=== PATIENT | female | born 1950 | race Caucasian/White ===

== ENCOUNTER 2017-04-09 12:38 | Emergency (ER) | payer MEDICARE ==
--- NOTE | ~2017-04-09 | CR72 ---
[facility] A Service of [facility] RADIOLOGY TEXT RESULTS PATIENT: WES [place] LOCATION: [facility] : 54 UNIT #: [id number] AGE: [address]: Reece Jones MD SEX: F ORDER DR: [id number] [facility] [address] [place], [place] [address] [id number] MR#: [id number] Acc #: [id number] NAME: WES [place] : 1950 SEX: F STUDY DATE/TIME: 04/09/2017 13:23 UNIT: [facility] ROOM: STUDY DESCRIPTION: CR Chest Single View Portable Attending Physician: Reece Jones M.D. Ordering Physician: Ed Kenton Carmona M.D. Primary Care Physician: Jordan King M.D. MEDICAL IMAGING REPORT This report is preliminary unless electronic signature is present EXAM Portable chest INDICATIONS Shortness of air and chest pain for 1 day. COMPARISON 08/28/16 FINDINGS A portable view of the chest is obtained. The heart size and vascularity are normal. The lungs are clear, except for linear atelectasis in the left lower lobe and right lower lobe. The bones are normal. IMPRESSION Minimal linear subsegmental atelectasis in each lower lobe, otherwise normal. Dictated by... Freeman Coker M.D. THIS IS AN ELECTRONICALLY VERIFIED REPORT Freeman Coker M.D. at 04/10/2017 7:27 AM ALMA DELIA/declan TD: 04/09/2017 22:22 JOB #: [id number] MEDICAL IMAGING REPORT Page 1 of 1 COPY
--- NOTE | ~2017-04-09 | EKG ---
PATIENT: WES [place] UNIT #: [id number] Ventricular Rate: 63 BPM Atrial Rate: 63 BPM P-R Interval: 138 ms QRS Duration: 90 ms Q-T Interval: 424 ms QTC Calculation(Bezet): 433 ms P Tatum: 3 degrees Calculated R Tatum: 18 degrees Calculated T Tatum: 25 degrees Diagnosis Line: Normal sinus rhythm Diagnosis Line: Normal ECG Diagnosis Line: When compared with ECG of 28-AUG-2016 18:10, Diagnosis Line: No significant change was found Diagnosis Line: Confirmed by PAIGE FRANCO MD ([id number]) on Diagnosis Line: 04/09/2017 10:20:07 PM INTERPRETING MD: CHELE
[~2017-04-09 12:38] MED LIST: ADVAIR 100-501 EAC1 IH; ALBUTEROL17 GM INH; ASPIRIN; ATARAX; AZITHROMYCIN250 MG PO; BACTRIM DS TABL1 TA1 PO; BACTRIM DS TABL1 TA2 PO; BREO ELLIPTA 11 EACH; CELEXA PO; CIPRO PO; COMBIVENT INH14.7 GM INH; DELTASONE20 MG PO; DUONEB 2.5-0.5 M3 ML NEB; GARLIC1 MG; GLUCOPHAGE500 M1 PO; GLUCOTROL PO; HUMULIN 70100 UNIT/1 SQ; INDERAL LA60 M1 PO; INVEGA PO; LACTULOSE10 G/15 M2 PO; LEXAPRO PO; LISINOPRIL PO; LOTENSIN; MEDROL DOSEPAK4 MG DOB; METRONIDAZOLE PO; MULTI VITAMIN1 EACH; NERVE PILL PO; NEURONTIN; NORVASC; OXYMETAZOLINE; PHENERGAN PO; PRAVASTATIN SOD40 MG PO; PREDNISONE PO; PROTONIX PO; REMERON PO; SYMBICORT INH; VIBRAMYCIN100 M1; VICODIN 5/1 TAB 5/50 PO; XANAX0.5 MG PO; ZYRTEC D PO
[2017-04-09 13:42] LABS: BASOPHIL# 0.1 X10e3 (0-0.3); BASOPHIL% 0.9 % (0-2.5); EOSINOPHIL# 0.1 X10e3 (0-0.7); HEMATOCRIT 38.9 % (35.0-45.0); HEMOGLOBIN 12.6 gm/dL (12.0-16.0); LYMPHOCYTE# 1.5 X10e3 (1.0-3.5); LYMPHOCYTE% 19.4 % (17.0-45.0); MEAN CELL VOLUME 81.7 FL (83-96); MEAN CORPUSCULAR HEMOGLOBIN 26.5 PG (28-34); MEAN CORPUSCULAR HGB CONC 32.5 g/dL (30-36); MEAN PLATELET VOLUME 9.9 FL (6.5-11.5); MONOCYTE# 0.3 X10e3 (0-1.0); MONOCYTE% 4.3 % (3.0-12.0); NEUTROPHIL# 5.9 X10e3 (1.5-7.1); NEUTROPHIL% 74.4 % (40-75); PLATELET COUNT 179 X10e3 (140-420); RED BLOOD COUNT 4.76 X10e (3.90-5.30)
[2017-04-09 13:46] LABS: DIFF IND NO
[2017-04-09 14:10] LABS: ALBUMIN SERUM 4.2 g/dL (3.5-5.0); BILIRUBIN, DIRECT 0.1 mg/dL (0.0-0.2); BILIRUBIN,INDIRECT 0.4 mg/dL (0.0-0.9); BILIRUBIN,TOTAL 0.5 mg/dL (0.2-2.0); BUN/CREATININE RATIO 17.5; CALCIUM SERUM 9.5 mg/dL (8.4-10.2); CREATININE SERUM 0.8 mg/dL (0.6-1.4); POTASSIUM 3.8 mmol/L (3.5-5.1); PROTEIN TOTAL SERUM 7.3 g/dL (6.0-8.3)
[2017-04-09 14:12] LABS: POC - CKMB <1.0 ng/mL (0.0-7.9); POC - TROPONIN <0.05 ng/mL (<=0.05)
[2017-04-09 15:09] LABS: POC - CKMB <1.0 ng/mL (0.0-7.9); POC - TROPONIN <0.05 ng/mL (<=0.05)
== END 2017-04-09 15:41 | disposition home or self-care (01) ==
LOC: CED 12:38
PROVIDERS: Emergency Medicine
DX: J44.1 Chronic obstructive pulmonary disease with (acute) exacerbation (principal); F41.9 Anxiety disorder, unspecified; E11.9 Type 2 diabetes mellitus without complications; K21.9 Gastro-esophageal reflux disease without esophagitis; J44.9 Chronic obstructive pulmonary disease, unspecified; I10 Essential (primary) hypertension; Z90.49 Acquired absence of other specified parts of digestive tract; F17.210 Nicotine dependence, cigarettes, uncomplicated; Z88.0 Allergy status to penicillin; Z88.7 Allergy status to serum and vaccine
CPT/HCPCS: 36415; 71010; 80048; 80076; 82553; 84484; 85025; 93005; 94640; 96374; 99284; J2930